=== PATIENT | female | born 1995 | race Caucasian/White ===

== ENCOUNTER 2020-03-25 20:52 | Emergency (ER) | payer OTHER ==
[2020-03-25 20:58] VITALS: BMI 32.9
[2020-03-25] MEDS ORDERED: SODIUM CHLORIDE 0.9% 500 ML INFUS.BAG IV ONE (22:25)
[2020-03-25] MEDS ORDERED: ONDANSETRON 4 MG/2 ML VIAL IVPUSH ONE (22:25)
[2020-03-25] MEDS ORDERED: KETOROLAC TROMETHAMINE 30 MG/1 ML VIAL IVPUSH ONE (22:25)
--- NOTE | 2020-03-25 22:38 | PDOC ---
History of Present Illness - General Chief Complaint: Pain, Acute Stated Complaint: LOWER ABD/PAIN Time Seen by Provider: 03/25/20 22:32 History Source: Patient Exam Limitations: No Limitations - History of Present Illness Initial Comments: 03/25/20 22:32 Patient is a 25-year-old female with past medical history of appendectomy here with complaints of "I have bladder pain" x 1 week. States her pain is in the suprapubic region but today worsened and now generalized radiating to the back described as a sharp 8/10 pain. Symptoms associated with frequency, urgency. States had nausea and vomiting initally but those symptoms have improved today. LMP stared 2 days ago PMHX; as above PSOCHX: (+) cig 2/day, neg etoh, neg drug ALL: NKDA GENERAL/CONSTITUTIONAL: [No fever or chills. No weakness. No weight change.] HEAD, EYES, EARS, NOSE AND THROAT: [No change in vision. No ear pain or discharge. No sore throat.] CARDIOVASCULAR: [No chest pain or shortness of breath.] RESPIRATORY: [No cough, wheezing, or hemoptysis.] GASTROINTESTINAL: [No nausea, vomiting, diarrhea or constipation. No rectal bleeding.] GENITOURINARY: [No dysuria, frequency, or change in urination.] MUSCULOSKELETAL: [No joint or muscle swelling or pain. No neck or back pain.] SKIN AND BREASTS: [No rash or easy bruising.] NEUROLOGIC: [No headache, vertigo, loss of consciousness, or loss of sensation.] PSYCHIATRIC: [No depression or anxiety.] ENDOCRINE: [No increased thirst. No abnormal weight change.] HEMATOLOGIC/LYMPHATIC: [No anemia, easy bleeding, or history of blood clots.] ALLERGIC/IMMUNOLOGIC: [No hives or skin allergy. No latex allergy.] GENERAL: [The patient is awake, alert, and fully oriented, in acute distress.] HEAD: [Normal with no signs of trauma.] EYES: [Pupils equal, round and reactive to light, extraocular movements intact, sclera anicteric, conjunctiva clear.] ENT: [Ears normal, nares patent, oropharynx clear without exudates. Moist mucous membranes.] NECK: [Normal range of motion, supple without lymphadenopathy, JVD, or masses.] LUNGS: [Breath sounds equal, clear to auscultation bilaterally. No wheezes, and no crackles.] HEART: [Regular rate and rhythm, normal S1 and S2 without murmur, rub.] ABDOMEN: [Soft, (+) tenderness generalized most in the suprapubic, normoactive bowel sounds. No guarding, no rebound. No masses, (+) right CVAT] EXTREMITIES: [Normal range of motion, no edema. No clubbing or cyanosis. No cords, erythema, or tenderness.] NEUROLOGICAL: [Cranial nerves II through XII grossly intact. Normal speech, normal gait.] PSYCH: [Normal mood, normal affect.] SKIN: [Warm, Dry, normal turgor, no rashes or lesions noted.] Past History - Medical History Allergies/Adverse Reactions: Allergies Allergy/AdvReac Type Severity Reaction Status Date / Time No Known Drug Allergies Allergy Verified 03/25/20 23:27 Home Medications: Ambulatory Orders NK [No Known Home Medication] 03/25/20 COPD: No - Reproductive History Is Patient Now?: No - Psycho-Social/Smoking History Smoking History: Current every day smoker Number of Cigarettes Smoked Daily: 2 Information on smoking cessation initiated: No - Substance Abuse Hx (Audit-C & DAST Scrn) How often the patient has a drink containing alcohol: Never Score: In Men: 4 or > Positive; In Women: 3 or > Positive: 0 Screen Result (Pos requires Nsg. Audit-10AR): Negative In the last yr the pt used illegal drug/Rx for NonMed reason: No Score: Yes response is considered Positive: 0 Screen Result (Positive result requires Nsg. DAST-10): Negative *Physical Exam - Vital Signs Last Vital Signs Temp Pulse Resp BP Pulse Ox 99.6 F 75 19 115/64 98 03/25/20 20:55 03/25/20 20:55 03/25/20 20:55 03/25/20 20:55 03/25/20 20:55 ED Treatment Course - LABORATORY CBC & Chemistry Diagram: 03/25/20 22:40 03/25/20 22:40 Medical Decision Making - Medical Decision Making 03/25/20 22:32 Patient is a 25-year-old female with past medical history of appendectomy here with complaints of "I have bladder pain" x 1 week. States her pain is in the suprapubic region but today worsened and now generalized radiating to the back described as a sharp 8/10 pain. Symptoms associated with frequency, urgency. States had nausea and vomiting initally but those symptoms have improved today. Patient exhibiting symptoms of possible early pyelonephritis, vs renal stone Labs IV fluids, antinausea, pain meds Reassess 03/25/20 23:48 Patient feels improved of pain. Labs reviewed noted to have blood in the urine. We will send patient for CT Noncon abdomen rule out stone. 03/25/20 23:50 Case to be endorsed to the night team pending disposition. Discharge - Discharge Information Problems reviewed: Yes Clinical Impression/Diagnosis: Flank pain Condition: Stable - Follow up/Referral Referrals: ON STAFF,NOT [Primary Care Provider] - - Patient Discharge Instructions - Post Discharge Activity
[2020-03-25 22:48] LABS: BASO % 0.5 % (0-2.0); EOS % 1.7 % (0-4.5); HEMOGLOBIN 12.8 GM/dL (10.7-15.3); MCH 28.2 pg (25.7-33.7); MCHC 33.7 g/dl (32.0-36.0); MEAN CELL VOLUME 83.7 fl (80-96); MEAN PLT VOLUME 7.8 fl (7.5-11.1); MONO % 12.2 % (3.8-10.2); NEUT % 64.6 % (42.8-82.8); PLATELET COUNT 193 K/MM3 (134-434); RBC 4.54 M/mm3 (3.60-5.2); RDW 14.6 % (11.6-15.6)
[2020-03-25 23:10] LABS: ALBUMIN 3.7 g/dl (3.4-5.0); BILIRUBIN,TOTAL 0.4 mg/dL (0.2-1); CALCIUM 8.5 mg/dL (8.5-10.1); CREATININE 0.8 mg/dL (0.55-1.3); POTASSIUM 3.8 mmol/L (3.5-5.1); TOT PROT 7.3 g/dl (6.4-8.2)
[2020-03-25 23:14] LABS: EPI CELLS >36 /uL (0-25.1); HYALINE CASTS 1 /uL (0-3.1); URINE APPEARANCE CLEAR; URINE BACTERIA 589 /uL (0-1359); URINE BILIRUBIN NEGATIVE (NEGATIVE); URINE COLOR YELLOW; URINE GLUCOSE (UA) NEGATIVE (NEGATIVE); URINE KETONE NEGATIVE (NEGATIVE); URINE LEUK ESTERASE TRACE (NEGATIVE); URINE NITRITE NEGATIVE (NEGATIVE); URINE PROTEIN NEGATIVE (NEGATIVE); URINE RBC 5 /uL (0-23.9); URINE WBC 37 /uL (0-25.8)
--- NOTE | 2020-03-26 02:26 | PDOC ---
*Physical Exam - Vital Signs Last Vital Signs Temp Pulse Resp BP Pulse Ox 99.6 F 75 19 115/64 98 03/25/20 20:55 03/25/20 20:55 03/25/20 20:55 03/25/20 20:55 03/25/20 20:55 ED Treatment Course - LABORATORY CBC & Chemistry Diagram: 03/25/20 22:40 03/25/20 22:40 - ADDITIONAL ORDERS Additional order review: Laboratory Results 03/25/20 03/25/20 03/25/20 22:44 22:44 22:40 Sodium 142 Potassium 3.8 Chloride 108 H Carbon Dioxide 26 Anion Gap 7 L BUN 9.0 Creatinine 0.8 Est GFR (CKD-EPI)AfAm 119.60 Est GFR (CKD-EPI)NonAf 103.19 Random Glucose 73 L Calcium 8.5 Total Bilirubin 0.4 AST 20 ALT 25 Alkaline Phosphatase 111 Total Protein 7.3 Albumin 3.7 Serum , Qual Negative Urine Color Yellow Urine Appearance Clear Urine pH 8.0 Ur Specific [place] 1.020 Urine Protein Negative Urine Glucose (UA) Negative Urine Ketones Negative Urine Blood 2+ H Urine Nitrite Negative Urine Bilirubin Negative Urine Urobilinogen 1.0 Ur Leukocyte Esterase Trace Urine WBC (Auto) 37 Urine RBC (Auto) 5 Urine Casts (Auto) 1 U Epithel Cells (Auto) >36 Urine Bacteria (Auto) 589 03/25/20 22:40 RBC 4.54 MCV 83.7 MCHC 33.7 RDW 14.6 MPV 7.8 Neutrophils % 64.6 Lymphocytes % 21.0 Monocytes % 12.2 H Eosinophils % 1.7 Basophils % 0.5 - Medications Given in the ED: ED Medications Discontinued Medications Generic Name Dose Route Start Last Admin Trade Name Tjq PRN Reason Stop Dose Admin Ketorolac Tromethamine 30 mg 03/25/20 22:25 03/25/20 23:08 Toradol Injection - IVPUSH 03/25/20 22:26 30 mg ONCE ONE Administration Ondansetron HCl 4 mg 03/25/20 22:25 03/25/20 23:08 Zofran Injection IVPUSH 03/25/20 22:26 4 mg ONCE ONE Administration Sodium Chloride 1,000 ml 03/25/20 22:25 03/25/20 23:08 Normal Saline - IV 03/25/20 22:26 1,000 ml ONCE ONE Administration Medical Decision Making - Medical Decision Making 03/26/20 02:26 Patient Name: RADHA QUIROZ THIS IS A PRELIMINARY REPORT DATE OF SERVICE: 2020-03-26 01:08:55 IMAGES: [id number] EXAM: CT abdomen and pelvis without contrast HISTORY left flank pain rule out stone COMPARISON: None. FINDINGS: Negative for right or left urinary tract stone or obstruction. No bowel obstruction or inflammation. Negative for diverticulitis or colitis. Normal liver. Normal spleen. Normal pancreas. Normal adrenal glands. Osseous structures are intact. 03/26/20 02:37 Pt will be treated for a UTI; home with keflex Discharge - Discharge Information Problems reviewed: Yes Clinical Impression/Diagnosis: Flank pain, UTI (urinary tract infection) Condition: Stable Disposition: HOME - Additional Discharge Information Prescriptions: Cephalexin [Keflex] 500 mg PO BID #14 capsule - Follow up/Referral Referrals: ON STAFF,NOT [Primary Care Provider] - - Patient Discharge Instructions Patient Printed Discharge Instructions: Urinary Tract Infection - Post Discharge Activity Work/Back to School Note: Back to Work
[2020-03-26 03:07] VITALS: BP 107/66; PULSE 54; TEMP 99
== END 2020-03-26 03:07 | disposition home or self-care (01) ==
LOC: JER 20:52
PROC: 3E0333Z Introduction of Anti-inflammatory into Peripheral Vein, Percutaneous Approach (ICD-10-PCS; principal; 2020-03-25)
PROC: 3E033GC Introduction of Other Therapeutic Substance into Peripheral Vein, Percutaneous Approach (ICD-10-PCS; 2020-03-25)
DX: R10.9 Unspecified abdominal pain (principal); N39.0 Urinary tract infection, site not specified
CPT/HCPCS: 36415; 74176-TC; 80053; 81003; 84703; 85025; 87077; 87086; 96374; 96375; 99284-25

== ENCOUNTER 2023-11-08 06:42 | Emergency (ER) | payer OTHER ==
[2023-11-08 06:50] VITALS: RESP 18; BMI 25.3
[2023-11-08] MEDS ORDERED: ONDANSETRON 4 MG/2 ML VIAL ONE (07:50)
[2023-11-08] MEDS ORDERED: ACETAMINOPHEN INJECTION 100 ML IVPB ONE (07:51)
[2023-11-08] MEDS ORDERED: FAMOTIDINE 20 MG/50 ML IVPB 20 MG/50 ML MG IVPB ONE (07:51)
[2023-11-08] MEDS: LACTATED RINGERS SOLUTION 1000 ML INFUS.BAG IV ONE (08:36)
[2023-11-08] MEDS: FAMOTIDINE 20 MG/50 ML IVPB 20 MG/50 ML MG IVPB ONE (08:37)
[2023-11-08] MEDS: ACETAMINOPHEN 1000 MG/100 ML BAG IVPB ONE (08:37)
[2023-11-08] MEDS: ONDANSETRON 4 MG/2 ML VIAL IVPUSH ONE (08:37)
[2023-11-08 08:42] LABS: BASO % 0.6 % (0-2.0); EOS % 1.9 % (0-4.5); HEMATOCRIT 40.1 % (32.4-45.2); HEMOGLOBIN 13.2 GM/dL (10.7-15.3); LYMPH % 26.6 % (8-40); MCHC 32.8 g/dl (32.0-36.0); MEAN CELL VOLUME 82.2 fl (80-96); MEAN PLT VOLUME 7.6 fl (7.5-11.1); MONO % 9.9 % (3.8-10.2); PLATELET COUNT 241 10^3/uL (134-434); RBC 4.88 M/mm3 (3.60-5.2); RDW 16.1 % (11.6-15.6); WHITE BLOOD COUNT 5.1 K/mm3 (4.0-10.0)
[2023-11-08 08:48] LABS: INR 1.13 (0.83-1.09); PROTHROMBIN TIME (PATIENT) 13.1 SEC (9.7-13.0)
[2023-11-08 08:51] LABS: ACTIVATED PTT 39.4 SECONDS (25.2-36.5); POTASSIUM 3.8 mmol/L (3.5-5.1)
[2023-11-08 08:55] LABS: ALBUMIN 3.9 g/dl (3.4-5.0); BLOOD UREA NITROGEN 7.9 mg/dL (7-18)
[2023-11-08 08:58] LABS: CREATININE 0.7 mg/dL (0.55-1.3)
[2023-11-08 08:59] LABS: BILIRUBIN,TOTAL 0.4 mg/dL (0.2-1); TOT PROT 8.1 g/dl (6.4-8.2)
[2023-11-08] MEDS ORDERED: PANTOPRAZOLE SODIUM 40 MG VIAL ONE (09:52)
[2023-11-08] MEDS ORDERED: SUCRALFATE 1 GM TABLET (FP) ONE (09:52)
[2023-11-08] MEDS ORDERED: MAG HYDROX/AL HYDROX/SIMETH 30 ML UNIT-DOSE CUP ONE (09:52)
[2023-11-08] MEDS: SUCRALFATE 1 GM/10 ML UNIT DOSE CUPS PO ONE (10:24)
[2023-11-08] MEDS: PANTOPRAZOLE SODIUM 40 MG VIAL IVPUSH ONE (10:24)
[2023-11-08] MEDS: MAG HYDROX/AL HYDROX/SIMETH 30 ML UNIT-DOSE CUP PO ONE (10:24)
[2023-11-08] MEDS ORDERED: ONDANSETRON *ODT* 4 MG TABLET ONE (11:03)
[2023-11-08 11:15] VITALS: BP 110/75; PULSE 85; TEMP 98
== END 2023-11-08 11:15 | disposition home or self-care (01) ==
LOC: JER 06:42
PROC: 3E033GC Introduction of Other Therapeutic Substance into Peripheral Vein, Percutaneous Approach (ICD-10-PCS; principal; 2023-11-08)
PROC: 3E033GC Introduction of Other Therapeutic Substance into Peripheral Vein, Percutaneous Approach (ICD-10-PCS; 2023-11-08)
PROC: 3E033GC Introduction of Other Therapeutic Substance into Peripheral Vein, Percutaneous Approach (ICD-10-PCS; 2023-11-08)
PROC: 3E033NZ Introduction of Analgesics, Hypnotics, Sedatives into Peripheral Vein, Percutaneous Approach (ICD-10-PCS; 2023-11-08)
DX: R10.11 Right upper quadrant pain (principal); R11.2 Nausea with vomiting, unspecified; R10.13 Epigastric pain; Z20.822 Contact with and (suspected) exposure to COVID-19
CPT/HCPCS: 0241U-QW; 36415; 76705-TC; 80053; 83690; 84703; 85025; 85610; 85730; 86850; 86900; 86901; 93005; 93010; 99285-25; J0131